=== PATIENT | female | born 1945 | race Caucasian/White ===

== ENCOUNTER → 2016-10-16 | Outpatient (CLI) | payer MEDICARE, OTHER ==
[~2016-10-16] MED LIST: BACTRIM,SEPT1 TABLET PO; CALCIUM 500 MG1 EACH PO; CENTRUM SILVER1 EAC3 PO; CLONAZEPAM2 MG PO; CYCLOBENZAPRINE5 MG PO; FERROUS SULFAT325 MG PO; GABAPENTIN300 MG PO; HYDROCODON-ACE1 EAC7 PO; KLOR-CON 1010 ME1 PO; LISINOPRIL-HCT1 EAC3 PO; LO-DOSE ASPIRIN81 M1 PO; NORTRIPTYLINE H10 MG PO; OMEPRAZOLE20 MG PO; SENNA8.6 MG PO; TIZANIDINE HCL4 MG PO; TRAMADOL HCL50 MG PO; VITAMIN D1000 UNIT PO
== END | disposition home or self-care (01) ==
LOC: CDC 08:45
DX: Z01.810 Encounter for preprocedural cardiovascular examination (principal); M48.06 Spinal stenosis, lumbar region; M99.03 Segmental and somatic dysfunction of lumbar region; M54.5 Low back pain; Z88.1 Allergy status to other antibiotic agents
CPT/HCPCS: 93000

== ENCOUNTER 2016-10-17 08:57 | Inpatient (IN) | payer OTHER ==
[~2016-10-17] VITALS: Ht 170.2 cm; Wt 113.4 kg
[~2016-10-17 08:57] MED LIST changes: -HYDROCODON-ACE1 EAC7 PO; -TIZANIDINE HCL4 MG PO
[2016-10-17 10:04] VITALS: BP 130/66
[2016-10-17 17:45] VITALS: BP 140/66
[2016-10-17 20:28] VITALS: BP 140/66
[2016-10-18 00:02] VITALS: BP 112/54
[2016-10-18 04:11] VITALS: BP 109/61
[2016-10-18 08:01] VITALS: BP 108/56
[2016-10-18 08:11] VITALS: BP 108/56
[2016-10-18 11:13] VITALS: BP 99/53
[2016-10-18] MEDS ORDERED: HYDROCODON-ACE1 EAC7 PO (15:01)
[2016-10-18] MEDS ORDERED: TIZANIDINE HCL4 MG PO (15:01)
[2016-10-18 16:37] VITALS: BP 116/68
== END 2016-10-18 16:42 | disposition home or self-care (01) | DRG 460 ==
LOC: 2SOUTH → 3EAST 08:57 → 2SOUTH 08:57 → 3EAST 19:21
DX: M43.16 Spondylolisthesis, lumbar region (principal); M48.06 Spinal stenosis, lumbar region; M51.16 Intervertebral disc disorders with radiculopathy, lumbar region; M41.9 Scoliosis, unspecified; G47.30 Sleep apnea, unspecified; I10 Essential (primary) hypertension; K21.9 Gastro-esophageal reflux disease without esophagitis; M79.7 Fibromyalgia; E66.01 Morbid (severe) obesity due to excess calories; Z68.39 Body mass index [BMI] 39.0-39.9, adult; Z98.1 Arthrodesis status; Z96.642 Presence of left artificial hip joint; Z88.1 Allergy status to other antibiotic agents; Z87.891 Personal history of nicotine dependence; Z79.82 Long term (current) use of aspirin
CPT/HCPCS: 36415; 72100; 76000; 80048; 85025; 86850; 86900; 86901; 94799; J0131; J0330; J0690; J1100; J1170; J2250; J2405; J2930; J3010; J3480; S0020

== ENCOUNTER 2016-11-14 08:12 | Inpatient (IN) | payer OTHER ==
[~2016-11-14] VITALS: Ht 170.2 cm; Wt 108.8 kg
[~2016-11-14 08:12] MED LIST changes: +HYDROCODON-ACE1 EAC7 PO; +TIZANIDINE HCL4 MG PO
[2016-11-14 09:02] VITALS: BP 117/59
[2016-11-14 09:22] LABS: MCHC 31.5 G/DL (30.0-36.0); MCV 92.1 FL (83-99); MEAN PLAT.VOLUME 12.4 uM^3 (9.5-12.4); PLATELET COUNT 211 K/uL (156-360); RBC DIS.WIDTH-CV 13.2 % (11.8-14.6); RBC DIS.WIDTH-SD 44.7 % (39-53); RED BLOOD COUNT 4.45 M/uL (3.80-5.20); WHITE BLOOD COUNT 7.4 K/uL (4.1-10.2)
[2016-11-14 10:05] LABS: ANION GAP 10 MEQ/L (2-14); CHLORIDE 102 MEQ/L (99-109); POTASSIUM 4.7 MEQ/L (3.7-5.4); SAMPLE HEMOLYSIS CHECK 0; SAMPLE ICTERIC CHECK 0; SAMPLE LIPEMIA CHECK 0; SODIUM 141 MEQ/L (136-147)
[2016-11-14 10:10] LABS: GFR ESTIMATE (CALCULATED) 39 mL/min/; GLUCOSE 109 mg/dL (70-99); UREA NITROGEN (BUN) 42 mg/dL (9-23)
[2016-11-14 20:22] VITALS: BP 151/66
[2016-11-15 00:29] VITALS: BP 130/67
[2016-11-15 08:25] VITALS: BP 121/61
[2016-11-15 16:03] VITALS: BP 112/58
[2016-11-15 20:18] VITALS: BP 125/58
[2016-11-16 00:15] VITALS: BP 100/68
[2016-11-16 04:36] VITALS: BP 132/61
[2016-11-16 07:45] VITALS: BP 121/60
[2016-11-16] MEDS ORDERED: HYDROCODON-ACE1 EAC7 PO (08:45)
[2016-11-16 12:19] VITALS: BP 125/69
== END 2016-11-16 12:46 | disposition home or self-care (01) | DRG 909 ==
LOC: 2SOUTH 08:12 → 3EAST 08:12 → 2SOUTH 10:36 → 3EAST 20:13 → 2SOUTH 11-15 08:46 → 3EAST 11-16 12:46
PROVIDERS: Neurological Surgery
DX: T85.698A Other mechanical complication of other specified internal prosthetic devices, implants and grafts, initial encounter (principal); M53.2X6 Spinal instabilities, lumbar region; M48.07 Spinal stenosis, lumbosacral region; M47.817 Spondylosis without myelopathy or radiculopathy, lumbosacral region; M79.7 Fibromyalgia; I10 Essential (primary) hypertension; G47.30 Sleep apnea, unspecified; K21.9 Gastro-esophageal reflux disease without esophagitis; M19.90 Unspecified osteoarthritis, unspecified site; F41.9 Anxiety disorder, unspecified; F32.9 Major depressive disorder, single episode, unspecified; Z96.89 Presence of other specified functional implants; Z96.642 Presence of left artificial hip joint; E66.01 Morbid (severe) obesity due to excess calories; Z68.37 Body mass index [BMI] 37.0-37.9, adult; Z98.1 Arthrodesis status; Z87.891 Personal history of nicotine dependence; Z88.1 Allergy status to other antibiotic agents
CPT/HCPCS: 72020; 72100; 76000; 80048; 85027; 86850; 86900; 86901; 94799; 97530 GO; J0131; J0690; J1100; J1170; J1580; J2250; J2405; J2710; J2930; J3370; J3480; S0020

== ENCOUNTER 2016-12-10 09:10 | Emergency (ER) | payer OTHER ==
[~2016-12-10] VITALS: Ht 170.2 cm; Wt 108.6 kg
[2016-12-10] MEDS ORDERED: BACTRIM,SEPT1 TABLET PO (10:01)
[2016-12-10 10:34] VITALS: BP 109/63
== END 2016-12-10 10:46 | disposition home or self-care (01) ==
LOC: EME 09:10
DX: T81.4XXA Infection following a procedure, initial encounter (principal); Y83.8 Other surgical procedures as the cause of abnormal reaction of the patient, or of later complication, without mention of misadventure at the time of the procedure; M79.7 Fibromyalgia; I10 Essential (primary) hypertension; K21.9 Gastro-esophageal reflux disease without esophagitis; Z87.891 Personal history of nicotine dependence
CPT/HCPCS: 87070; 87075; 87077; 87147; 87186; 87205; 99281; 99284